=== PATIENT | female | born 1950 | race Caucasian/White ===

== ENCOUNTER 2017-02-21 10:51 | Emergency (ER) | payer MEDICARE ==
[~2017-02-21] VITALS: Ht 165.1 cm; Wt 77.1 kg
[~2017-02-21 10:51] MED LIST: PHENERGAN25 M1 PO
== END 2017-02-21 11:52 | disposition home or self-care (01) ==
LOC: ED 10:51
DX: I73.9 Peripheral vascular disease, unspecified (principal); Z88.2 Allergy status to sulfonamides; Z88.8 Allergy status to other drugs, medicaments and biological substances; Z86.73 Personal history of transient ischemic attack (TIA), and cerebral infarction without residual deficits

== ENCOUNTER 2017-10-01 14:50 | Emergency (ER) | payer MEDICARE ==
[~2017-10-01] VITALS: Ht 165.1 cm; Wt 81.6 kg
[2017-10-01] MEDS ORDERED: ZITHROMAX250 MG PO (19:23)
[2017-10-01] MEDS ORDERED: DELTASONE20 M1 PO (19:23)
== END 2017-10-01 19:30 | disposition home or self-care (01) ==
LOC: ED 14:50
DX: J40 Bronchitis, not specified as acute or chronic (principal); Z88.2 Allergy status to sulfonamides

== ENCOUNTER → 2017-10-25 | Outpatient (CLI) | payer MEDICARE ==
[~2017-10-25] MED LIST changes: +DELTASONE20 M1 PO; +ZITHROMAX250 MG PO
[2017-10-25 14:55] LABS: BASO % 0.4 % (0.0-1.0); EOS # 0.1 10*3/uL (0.0-0.4); EOS % 2.1 % (1.0-4.0); HEMATOCRIT 37.8 % (37.0-47.0); HEMOGLOBIN 12.3 g/dl (12.0-16.0); LYMPH # 1.6 10*3/uL (1.3-4.4); LYMPH % 30.3 % (27.0-41.0); MEAN CELL VOLUME 94.3 fl (81.0-99.0); MEAN CORPUSCULAR HGB 30.7 pg (27.0-31.0); MEAN CORPUSCULAR HGB CONC 32.5 g/dl (33.0-37.0); MEAN PLATELET VOLUME 9.2 fl (9.6-12.3); MONO # 0.4 10*3/uL (0.1-1.0); MONO % 8.3 % (3.0-9.0); NEUT # 3.1 10*3/uL (2.3-7.9); NEUT % 58.7 % (47.0-73.0); PLATELET COUNT AUTOMATED 210 10*3/uL (130-400); RED BLOOD COUNT 4.01 10*6/uL (4.10-5.10); RED CELL DISTRI WIDTH 12.6 % (0-14.5); WHITE BLOOD COUNT 5.3 10*3/uL (4.8-10.8)
[2017-10-25 15:26] LABS: ALBUMIN 3.4 gm/dl (3.1-4.5); ALKALINE PHOSPHATASE 55 U/L (45-117); BUN 15 mg/dl (7-24); CHLORIDE 107 mmol/L (98-107); CHOLESTEROL 188 mg/dL (<200); CREATININE 0.72 mg/dL (0.55-1.02); HDL CHOLESTEROL 53 mg/dl (40-60); LDL CHOLESTEROL 103 mg/dL (9-159); POTASSIUM 3.9 mmol/L (3.5-5.1); SGOT/AST 10 IU/L (3-35); SGPT/ALT 16 U/L (12-78); SODIUM 141 mmol/L (136-145); TOTAL PROTEIN 6.6 gm/dL (6.4-8.2); TRIGLYCERIDES 159 mg/dl (<150); VLDL CHOLESTEROL 32 mg/dL (6-40)
== END | disposition home or self-care (01) ==
LOC: LAB 14:33
PROVIDERS: Internal Medicine
DX: E66.3 Overweight (principal); R42 Dizziness and giddiness; Z79.899 Other long term (current) drug therapy

== ENCOUNTER → 2017-10-29 | Outpatient (CLI) | payer MEDICARE | END | disposition home or self-care (01) | LOC: US 10:00 | DX: I65.23 Occlusion and stenosis of bilateral carotid arteries (principal); R55 Syncope and collapse; Z78.0 Asymptomatic menopausal state ==

== ENCOUNTER → 2017-11-14 | Outpatient (CLI) | payer MEDICARE | END | disposition home or self-care (01) | LOC: MAMMO 10-29 10:49 | DX: Z12.31 Encounter for screening mammogram for malignant neoplasm of breast (principal); Z13.820 Encounter for screening for osteoporosis; Z78.0 Asymptomatic menopausal state ==

== ENCOUNTER → 2017-11-25 | Outpatient (CLI) | payer MEDICARE ==
--- NOTE | ~2017-11-25 | HM ---
[place], [place] HOLTER MONITOR REPORT [id number] UNIT #: [id number] ROOM: DOCTOR: LILA SIMPSON MD BIRTHDATE: [birth year] DOS: 11/26/2017 Study was recorded from November 25 through the . The recording was analyzed and this is being interpreted and dictated on 11/26/2017. INDICATIONS: Dizziness. PROCEDURE: The patient's rhythms were recorded utilizing a Holter device for 24 hours from November 25 to 2017. FINDINGS: Basic rhythm is normal sinus with an average heart rate of 70, heart rate varied from 41 beats per minute to 132 beats per minute in sinus rhythm. The patient had occasional premature ventricular contractions with rare couplets. There was no sustained ventricular tachycardia seen. The patient had occasional premature atrial contractions with seven short runs of SVT. These lasted up to 7 beats in duration with maximum heart rate recorded at 194. No prolonged pauses were seen. The patient did return a diary and reported that she was feeling lightheaded and short of breath on numerous occasions. During one episode, she did have a 3 beat run of SVT. The other episodes were associated with either normal sinus rhythm or mild sinus tachycardia. The symptoms did not correlate directly with any significant arrhythmia. IMPRESSION: 1. Occasional premature ventricular contractions without symptoms. 2. Occasional premature atrial contractions. The patient did feel "a little dizzy" during a 3 beat run of SVT. Otherwise, she did not record any symptoms during SVT. 3. Multiple reports of dizziness, lightheadedness, and dyspnea reported during sinus rhythm or mild sinus tachycardia. LILA SIMPSON MD CM:HOLTER:HOLTER MONITOR REPORT 00 22 LILA SIMPSON MD
== END | disposition home or self-care (01) ==
LOC: CARD 09:49
DX: R42 Dizziness and giddiness (principal)

== ENCOUNTER 2018-01-18 03:11 | Inpatient (IN) | payer MEDICARE ==
[2018-01-18] VITALS (17 sets, daily range): BP systolic 95–138; BP diastolic 33–81
[~2018-01-18] VITALS: Ht 165.1 cm; Wt 81.6 kg
--- NOTE | ~2018-01-18 | PR ---
[place], [place] PROGRESS NOTE NAME: CRYSTAL GREENFIELD [facility] #: [id number] UNIT #: [id number] ROOM: 507 DOCTOR: LILA SIMPSON MD BIRTHDATE: [birth year] DOS: 01/20/2018 SUBJECTIVE: The patient was seen today, 01/20/2018, in the Cardiology Department just prior to her pharmacologic stress test. She is a 67-year-old woman who presented for evaluation of heart palpitations and lightheadedness. She states that she has had episodes like this intermittently for the past few months, but usually they had been brief and self limited. The current episode was much more prolonged. She was found to have a narrow complex tachycardia in the Emergency Room. she was given diltiazem and converted back to sinus rhythm. Cardiac biomarkers were abnormal with a troponin of 0.344, followed by 0.463, followed by 0.381. She has felt well since she has been in the hospital, has had no further palpitations. She is on metoprolol now and she is tolerating it well. PHYSICAL EXAMINATION: GENERAL: She is a slender white female who is awake, alert and oriented. VITAL SIGNS: Pulse is 72 and regular, blood pressure is 100/63. She is afebrile. She weighs 81.6 kg and has a body mass index of 30. HEENT: Normocephalic and atraumatic. Extraocular muscles are intact. Sclerae are clear. Pupils are equal, round and react to light. The oral mucosa is moist. Tongue is midline. NECK: Supple. She has no jugular distention or hepatojugular reflux. Carotids are full. LUNGS: Respirations are unlabored. Her chest is clear to auscultation and percussion. HEART: Has a regular rhythm with an S4 gallop. There is no S3. ABDOMEN: Benign. EXTREMITIES: Showed no edema. Peripheral pulses are palpable in the feet. ASSESSMENT AND PLAN: She seems to be stable from a cardiac standpoint. It is likely that her elevated troponin on admission was related to her rapid tachycardia rather than secondary to an acute coronary event. In order to evaluate her further, we will proceed with a pharmacologic stress test today and probable echo was well. If those are normal, she may be discharged and we will consider outpatient electrophysiologic assessment for further evaluation. We thank the hospitalist physicians for asking our advice regarding her care. [place], [place] PROGRESS NOTE NAME: CRYSTAL GREENFIELD UNIT #: [id number] ROOM: 507 DOCTOR: CALVIN CASTRO,LILA BIRTHDATE: [birth year] LILA SIMPSON MD CM:PNTRANS [id number] LILA SIMPSON MD 01/20/18 1116 interface
[2018-01-18 03:44] LABS: BASO % 0.4 % (0.0-1.0); EOS # 0.2 10*3/uL (0.0-0.4); EOS % 1.8 % (1.0-4.0); HEMATOCRIT 42.4 % (37.0-47.0); HEMOGLOBIN 13.8 g/dl (12.0-16.0); LYMPH # 3.7 10*3/uL (1.3-4.4); LYMPH % 36.9 % (27.0-41.0); MEAN CELL VOLUME 94.4 fl (81.0-99.0); MEAN CORPUSCULAR HGB 30.7 pg (27.0-31.0); MEAN CORPUSCULAR HGB CONC 32.5 g/dl (33.0-37.0); MEAN PLATELET VOLUME 9.9 fl (9.6-12.3); MONO # 0.9 10*3/uL (0.1-1.0); MONO % 9.1 % (3.0-9.0); NEUT # 5.2 10*3/uL (2.3-7.9); NEUT % 51.5 % (47.0-73.0); PLATELET COUNT AUTOMATED 232 10*3/uL (130-400); RED BLOOD COUNT 4.49 10*6/uL (4.10-5.10); RED CELL DISTRI WIDTH 13.2 % (0-14.5)
[2018-01-18 03:52] LABS: ACT PARTIAL THROMBO TIME 21.9 SECONDS (20.8-31.5); INTERNATIONAL NORM RATIO 0.9 (2.0-3.5)
[2018-01-18 04:01] LABS: ALBUMIN 3.5 gm/dl (3.1-4.5); ALKALINE PHOSPHATASE 53 U/L (45-117); BUN 14 mg/dl (7-24); CHLORIDE 104 mmol/L (98-107); CREATININE 0.94 mg/dL (0.55-1.02); POTASSIUM 3.9 mmol/L (3.5-5.1); SGOT/AST 14 IU/L (3-35); SGPT/ALT 16 U/L (12-78); SODIUM 138 mmol/L (136-145); TOTAL PROTEIN 7.1 gm/dL (6.4-8.2)
[2018-01-18 04:05] LABS: TROPONIN I 0.344 ng/ml (<0.045)
[2018-01-18 07:04] LABS: PHOSPHOROUS 3.7 mg/dL (2.5-4.9)
[2018-01-18 07:13] LABS: THYROID STIM HORMONE (HS) 2.03 uIU/ml (0.358-4.75)
[2018-01-18 07:58] LABS: VITAMIN D, 25-HYDROXY 17.5 ng/mL (30-100)
[2018-01-18 17:32] LABS: BILIRUBIN NEGATIVE (NEGATIVE); BLOOD NEGATIVE (NEGATIVE); CLARITY CLEAR (CLEAR); COLOR YELLOW (YELLOW); GLUCOSE NEGATIVE (NEGATIVE); KETONE NEGATIVE (NEGATIVE); LEUKO ESTERASE 1+ (NEGATIVE); NITRITE NEGATIVE (NEGATIVE); UROBILINOGEN 0.2 E.U./dl (0.2-1.0)
[2018-01-18 17:38] LABS: BACTERIA 2+; EPITHELIAL CELLS 0-2; RBC 0-2 rbc/hpf (0-2)
[2018-01-19] VITALS: BP 102/46
[2018-01-19 06:34] LABS: BASO % 0.5 % (0.0-1.0); EOS # 0.2 10*3/uL (0.0-0.4); EOS % 3.2 % (1.0-4.0); HEMATOCRIT 41.7 % (37.0-47.0); HEMOGLOBIN 13.2 g/dl (12.0-16.0); LYMPH # 2.3 10*3/uL (1.3-4.4); LYMPH % 37.8 % (27.0-41.0); MEAN CELL VOLUME 96.5 fl (81.0-99.0); MEAN CORPUSCULAR HGB 30.6 pg (27.0-31.0); MEAN CORPUSCULAR HGB CONC 31.7 g/dl (33.0-37.0); MEAN PLATELET VOLUME 9.4 fl (9.6-12.3); MONO # 0.6 10*3/uL (0.1-1.0); MONO % 9.9 % (3.0-9.0); NEUT # 2.9 10*3/uL (2.3-7.9); NEUT % 48.4 % (47.0-73.0); PLATELET COUNT AUTOMATED 242 10*3/uL (130-400); RED BLOOD COUNT 4.32 10*6/uL (4.10-5.10); RED CELL DISTRI WIDTH 13.2 % (0-14.5)
[2018-01-19 07:01] LABS: ALBUMIN 3.3 gm/dl (3.1-4.5); BUN 16 mg/dl (7-24); CHLORIDE 106 mmol/L (98-107); CREATININE 0.73 mg/dL (0.55-1.02); POTASSIUM 3.9 mmol/L (3.5-5.1); SGOT/AST 13 IU/L (3-35); SGPT/ALT 15 U/L (12-78); SODIUM 142 mmol/L (136-145); TOTAL PROTEIN 6.7 gm/dL (6.4-8.2)
[2018-01-19 07:02] LABS: ALKALINE PHOSPHATASE 51 U/L (45-117)
[2018-01-19 08:00] VITALS: BP 122/68
[2018-01-19 12:00] VITALS: BP 103/58
[2018-01-19 16:00] VITALS: BP 135/68
[2018-01-19 20:00] VITALS: BP 129/63
[2018-01-20] VITALS: BP 101/66
[2018-01-20 06:49] LABS: BASO % 0.4 % (0.0-1.0); EOS # 0.2 10*3/uL (0.0-0.4); EOS % 2.2 % (1.0-4.0); HEMATOCRIT 44.3 % (37.0-47.0); HEMOGLOBIN 14.3 g/dl (12.0-16.0); LYMPH # 2.2 10*3/uL (1.3-4.4); LYMPH % 32.5 % (27.0-41.0); MEAN CELL VOLUME 94.9 fl (81.0-99.0); MEAN CORPUSCULAR HGB 30.6 pg (27.0-31.0); MEAN CORPUSCULAR HGB CONC 32.3 g/dl (33.0-37.0); MEAN PLATELET VOLUME 9.5 fl (9.6-12.3); MONO # 0.6 10*3/uL (0.1-1.0); MONO % 8.4 % (3.0-9.0); NEUT # 3.8 10*3/uL (2.3-7.9); NEUT % 56.4 % (47.0-73.0); PLATELET COUNT AUTOMATED 259 10*3/uL (130-400); RED BLOOD COUNT 4.67 10*6/uL (4.10-5.10); WHITE BLOOD COUNT 6.8 10*3/uL (4.8-10.8)
[2018-01-20 06:55] LABS: ALBUMIN 3.6 gm/dl (3.1-4.5); ALKALINE PHOSPHATASE 50 U/L (45-117); BUN 15 mg/dl (7-24); CHLORIDE 104 mmol/L (98-107); CREATININE 0.82 mg/dL (0.55-1.02); POTASSIUM 3.9 mmol/L (3.5-5.1); SGOT/AST 10 IU/L (3-35); SGPT/ALT 15 U/L (12-78); SODIUM 140 mmol/L (136-145)
[2018-01-20 08:00] VITALS: BP 100/63
[2018-01-20 12:00] VITALS: BP 100/60
[2018-01-20 16:00] VITALS: BP 108/63
[2018-01-20] MEDS ORDERED: TOPROL XL50 M1 PO (18:37)
[2018-01-20] MEDS ORDERED: VITAMIN D31000 UNI1 PO (18:37)
[2018-01-20] MEDS ORDERED: ASPIRIN ADULT L81 M2 PO (18:37)
[2018-01-20] MEDS ORDERED: ATORVASTATIN CA40 M1 PO (18:37)
== END 2018-01-20 19:46 | disposition home or self-care (01) | DRG 205 ==
LOC: ED 03:11 → EDHOLD 04:14 → 5E 04:14
PROVIDERS: Emergency Medicine Emergency Medical Services; Internal Medicine
PROC: 3E073KZ Introduction of Other Diagnostic Substance into Coronary Artery, Percutaneous Approach (ICD-10-PCS; principal; 2018-01-18)
PROC: 4A02XM4 Measurement of Cardiac Total Activity, External Approach (ICD-10-PCS; principal; 2018-01-18)
DX: M94.0 Chondrocostal junction syndrome [Tietze] (principal); I21.A1 Myocardial infarction type 2; I95.9 Hypotension, unspecified; R65.10 Systemic inflammatory response syndrome (SIRS) of non-infectious origin without acute organ dysfunction; E83.41 Hypermagnesemia; Z68.45 Body mass index [BMI] 70 or greater, adult; I73.9 Peripheral vascular disease, unspecified; I47.1 Supraventricular tachycardia; K21.9 Gastro-esophageal reflux disease without esophagitis; J42 Unspecified chronic bronchitis; R73.9 Hyperglycemia, unspecified; E53.8 Deficiency of other specified B group vitamins; E66.9 Obesity, unspecified; Z88.2 Allergy status to sulfonamides; Z82.49 Family history of ischemic heart disease and other diseases of the circulatory system; Z84.89 Family history of other specified conditions; Z79.899 Other long term (current) drug therapy

== ENCOUNTER → 2018-01-31 | Outpatient (CLI) | payer MEDICARE ==
[~2018-01-31] MED LIST changes: +ASPIRIN ADULT L81 M2 PO; +ATORVASTATIN CA40 M1 PO; +TOPROL XL50 M1 PO; +VITAMIN D31000 UNI1 PO
--- NOTE | ~2018-01-31 | HM ---
[place], [place] HOLTER MONITOR REPORT NAME: CRYSTAL GREENFIELD UNIT #: [id number] ROOM: DOCTOR: LILA SIMPSON MD BIRTHDATE: [birth year] DOS: 02/03/2018 A 48-HOUR HOLTER MONITOR Study was done from January 31 through the 2017. The recording was analyzed 02/03/2018. INDICATIONS: Palpitations and dizziness. PROCEDURE: The patient's rhythm was recorded utilizing a Holter device for 48 hours. FINDINGS: The basic rhythm was normal sinus. Average heart rate was 66, heart rate in sinus rhythm varied from 40-140 beats per minute. The patient had occasional isolated PVCs. One couplet was recorded. Episodes of ventricular bigeminy were seen. These did not appear to be associated with any symptoms. The patient did have occasional to frequent PACs. She had several short runs of atrial tachycardia up to 15 beats in duration. Heart rate in SVT, was as high as 190 beats per minute. These did not appear to be associated with any symptoms. No prolonged pauses were seen. The patient did return a diary and stated that she had shortness of breath and dizziness on multiple occasions with episodes of palpitations on several occasions as well. These were often with activity such as walking the dog, pushing a grocery cart, etc. Analysis of the rhythm strips obtained during symptoms showed that she was in sinus rhythm without any arrhythmias at this time. IMPRESSION: 1. Occasional to frequent isolated PVCs. No ventricular tachycardia was seen. 2. Episodes of supraventricular tachycardia recorded up to 15 beats in duration with rates up to 190 beats per minute. These did not appear to be associated with any symptoms. 3. The patient reported symptoms of dyspnea and palpitations along with lightheadedness on several occasions. In each case, she was in sinus rhythm without any recorded arrhythmias. [place], [place] HOLTER MONITOR REPORT NAME: CRYSTAL GREENFIELD UNIT #: [id number] ROOM: DOCTOR: LIAL SIMPSON MD BIRTHDATE: [birth year] LILA SIMPSON MD CM:HOLTER:HOLTER MONITOR REPORT 25 51 LILA SIMPSON MD
== END | disposition home or self-care (01) ==
LOC: CARD 09:55
DX: R00.2 Palpitations (principal); R42 Dizziness and giddiness; I47.1 Supraventricular tachycardia

== ENCOUNTER → 2018-04-07 | Outpatient (CLI) | payer MEDICARE | END | disposition home or self-care (01) | LOC: RAD 11:51 | DX: M47.896 Other spondylosis, lumbar region (principal); M47.897 Other spondylosis, lumbosacral region ==

== ENCOUNTER → 2019-06-17 | Outpatient (CLI) | payer MEDICARE | END | disposition home or self-care (01) | LOC: RAD 11:51 | DX: M85.88 Other specified disorders of bone density and structure, other site (principal); M50.30 Other cervical disc degeneration, unspecified cervical region; M48.02 Spinal stenosis, cervical region ==

== ENCOUNTER 2019-08-07 09:09 | Emergency (ER) | payer MEDICARE ==
[~2019-08-07] VITALS: Ht 165.1 cm; Wt 81.6 kg
[2019-08-07] MEDS ORDERED: LEVAQUIN750 M1 PO (10:57)
[2019-08-07] MEDS ORDERED: PROAIR HFA8.5 GM INH (10:57)
[2019-08-07] MEDS ORDERED: PREDNISONE50 MG PO (10:57)
== END 2019-08-07 10:47 | disposition home or self-care (01) ==
LOC: ED 09:09
DX: J18.9 Pneumonia, unspecified organism (principal); Z88.2 Allergy status to sulfonamides; Z79.82 Long term (current) use of aspirin; Z79.899 Other long term (current) drug therapy

== ENCOUNTER 2019-09-04 20:53 | Inpatient (IN) | payer MEDICARE ==
[~2019-09-04] VITALS: Ht 165.1 cm; Wt 83.6 kg
[~2019-09-04 20:53] MED LIST changes: +LEVAQUIN750 M1 PO; +PREDNISONE50 MG PO; +PROAIR HFA8.5 GM INH
[2019-09-04 20:57] VITALS: BP 132/63
[2019-09-04 21:12] LABS: BASO % 0.2 % (0.0-1.0); EOS # 0.2 10*3/uL (0.0-0.4); EOS % 1.7 % (1.0-4.0); HEMATOCRIT 43.9 % (37.0-47.0); LYMPH # 2.2 10*3/uL (1.3-4.4); LYMPH % 23.1 % (27.0-41.0); MEAN CELL VOLUME 96.5 fl (81.0-99.0); MEAN CORPUSCULAR HGB 30.8 pg (27.0-31.0); MEAN CORPUSCULAR HGB CONC 31.9 g/dl (33.0-37.0); MEAN PLATELET VOLUME 9.2 fl (9.6-12.3); MONO # 0.8 10*3/uL (0.1-1.0); MONO % 8.9 % (3.0-9.0); NEUT # 6.2 10*3/uL (2.3-7.9); NEUT % 65.9 % (47.0-73.0); PLATELET COUNT AUTOMATED 247 10*3/uL (130-400); RED BLOOD COUNT 4.55 10*6/uL (4.10-5.10); RED CELL DISTRI WIDTH 12.6 % (0-14.5); WHITE BLOOD COUNT 9.4 10*3/uL (4.8-10.8)
[2019-09-04 21:23] LABS: ACT PARTIAL THROMBO TIME 26.7 SECONDS (20.0-32.1); INTERNATIONAL NORM RATIO 0.9 (2.0-3.5)
[2019-09-04 21:29] LABS: ALBUMIN 3.8 gm/dl (3.1-4.5); ALKALINE PHOSPHATASE 65 U/L (45-117); BUN 12 mg/dl (7-24); CHLORIDE 106 mmol/L (98-107); CREATININE 0.84 mg/dL (0.55-1.02); POTASSIUM 3.8 mmol/L (3.5-5.1); SGOT/AST 10 IU/L (3-35); SGPT/ALT 18 U/L (12-78); SODIUM 138 mmol/L (136-145); TOTAL PROTEIN 7.5 gm/dL (6.4-8.2)
[2019-09-04 21:30] LABS: TROPONIN I < 0.015 ng/ml (<0.045)
--- NOTE | 2019-09-04 21:52 | NUR ---
PT STATES SHE FEELS A LITTLE BETTER AFTER BREATHING TREATMENT BUT IS STILL HAVING PAIN IN THE RIGHT SIDE OF RIBS. LUNGS CLEAR AT THIS TIME. SIDERAILS UP X2, CALL LIGHT WITHIN REACH
[2019-09-04 22:12] VITALS: BP 125/68
[2019-09-05 00:45] VITALS: BP 139/66
[2019-09-05 00:54] VITALS: BP 121/50
--- NOTE | 2019-09-05 00:57 | NUR ---
A 69, admitted to , under the services of RAVEN Billingsley DO with a diagnosis of PE. Chief complaint is SOB. Patient arrived via being carried from ER. Monitor applied. Initial assessment completed. Vital signs taken and recorded. RAVEN BILLINGSLEY DO notified of admission to the unit. Orders received. See assessment for past medical history, medications and allergies. Patient and/or family oriented to unit. [facility] visitation policy reviewed. Clothing/patient valuable form completed. GINA YAÑEZ
--- NOTE | 2019-09-05 01:40 | NUR ---
DR. GORE NOTIFIED PT DOES NOT TAKE ANY HOME MEDICATIONS. PT IS AWAKE AT THIS TIME. RESPIRATIONS EASY ON 2L NC. DENIES ANY SOB AT THIS TIME. VOICES NO COMPLAINTS AT THIS TIME. CALL LIGHT WITHIN REACH.
--- NOTE | 2019-09-05 03:00 | NUR ---
PT SLEEPING. NO SIGNS OF DISTRESS. RESPIRATIONS EASY AND UNLABORED. CALL LIGHT IN REACH.
--- NOTE | 2019-09-05 05:19 | NUR ---
DR. LAZO NOTIFIED OF CONSULT. PER DR. LAZO, PT IS TO REMAIN ON LOVENOX AND NOT XARELTO FOR NOW. NO OTHER ORDERS AT THIS TIME.
--- NOTE | 2019-09-05 06:10 | NUR ---
NORCO GIVEN PER ORDER FOR COMPLAINTS OF 8/10 RIGHT SIDED CHEST PAIN. WILL MONITOR EFFECTIVENESS.
--- NOTE | 2019-09-05 07:30 | NUR ---
NORCO EFFECTIVE PER PT. WILL CONTINUE TO MONITOR. VSS.
[2019-09-05 08:00] VITALS: BP 135/60
--- NOTE | 2019-09-05 10:50 | NUR ---
NORCO GIVEN PER PRN ORDER FOR C/O CHEST DISCOMFORT DUE TO COUGH. WILL MONITOR EFFECTIVENESS. RATES PAIN 04/08. CALL LIGHT WITHIN REACH.
--- NOTE | 2019-09-05 11:46 | NUR ---
MELODIE EFFECTIVE PER PT.
[2019-09-05 12:00] VITALS: BP 114/53
--- NOTE | 2019-09-05 14:53 | NUR ---
NORCO GIVEN PER PRN ORDER FOR C/O CHEST PAIN DUE TO COUGHING. RATES PAIN 04/08. WILL MONITOR EFFECTIVENESS.
[2019-09-05 16:00] VITALS: BP 126/61
--- NOTE | 2019-09-05 18:55 | NUR ---
PT MEDICATED WITH PO NORCO PER PRN ORDER FOR C/O PAIN. RATES PAIN 05/09. WILL MONITOR EFFECTIVENESS.
--- NOTE | 2019-09-05 19:10 | NUR ---
REPORT RECEIVED FROM JAJA RINCON. PT AWAKE AT THIS TIME. O2 INTACT, 2L. NO COMPLAINTS AT THIS TIME. CALL LIGHT IN REACH, WHITE BOARD UPDATED.
[2019-09-05 20:00] VITALS: BP 108/72
--- NOTE | 2019-09-05 20:29 | NUR ---
NORCO EFFECTIVE FOR PAIN PER PT. RESTING QUIETLY AT THIS TIME. CALL LIGHT IN REACH.
--- NOTE | 2019-09-05 23:00 | NUR ---
PT MEDICATED WITH NORCO FOR COMPLAINTS OF CHEST PAIN RELATED TO COUGHING. WILL MONITOR EFFECTIVENESS.
[2019-09-06] VITALS: BP 92/74
--- NOTE | 2019-09-06 01:00 | NUR ---
PT SLEEPING AT THIS TIME.
--- NOTE | 2019-09-06 03:45 | NUR ---
PT LYING IN BED SLEEPING AT THIS TIME. RESPIRATIONS EASY AND UNLABORED. O2 INTACT. CALL LIGHT IN REACH.
--- NOTE | 2019-09-06 04:35 | NUR ---
24 HR chart check completed.
[2019-09-06 06:18] VITALS: BP 132/64
[2019-09-06 06:41] LABS: BASO % 0.4 % (0.0-1.0); EOS # 0.3 10*3/uL (0.0-0.4); EOS % 4.8 % (1.0-4.0); HEMATOCRIT 41.1 % (37.0-47.0); HEMOGLOBIN 12.9 g/dl (12.0-16.0); LYMPH # 1.9 10*3/uL (1.3-4.4); LYMPH % 28.6 % (27.0-41.0); MEAN CELL VOLUME 97.2 fl (81.0-99.0); MEAN CORPUSCULAR HGB 30.5 pg (27.0-31.0); MEAN CORPUSCULAR HGB CONC 31.4 g/dl (33.0-37.0); MEAN PLATELET VOLUME 9.4 fl (9.6-12.3); MONO # 0.7 10*3/uL (0.1-1.0); MONO % 10.5 % (3.0-9.0); NEUT # 3.7 10*3/uL (2.3-7.9); NEUT % 55.4 % (47.0-73.0); PLATELET COUNT AUTOMATED 246 10*3/uL (130-400); RED BLOOD COUNT 4.23 10*6/uL (4.10-5.10); RED CELL DISTRI WIDTH 12.5 % (0-14.5); WHITE BLOOD COUNT 6.7 10*3/uL (4.8-10.8)
[2019-09-06 06:56] LABS: BUN 12 mg/dl (7-24); CHLORIDE 106 mmol/L (98-107); CHOLESTEROL 178 mg/dL (<200); CREATININE 0.74 mg/dL (0.55-1.02); HDL CHOLESTEROL 53 mg/dl (40-60); LDL CHOLESTEROL 105 mg/dL (9-159); PHOSPHOROUS 3.9 mg/dL (2.5-4.9); POTASSIUM 4.3 mmol/L (3.5-5.1); SODIUM 137 mmol/L (136-145); TRIGLYCERIDES 101 mg/dl (<150); VLDL CHOLESTEROL 20 mg/dL (6-40)
[2019-09-06 08:00] VITALS: BP 109/61
--- NOTE | 2019-09-06 10:50 | NUR ---
PT MEDICATED WITH PO NORCO PER PRN ORDER FOR C/O CHEST PAIN DUE TO COUGHING. WILL MONITOR EFFECTIVENESS. CALL LIGHT WITHIN REACH.
--- NOTE | 2019-09-06 11:50 | NUR ---
EARLIER PAIN MEDICATION EFFECTIVE PER PT.
[2019-09-06 12:00] VITALS: BP 135/53
[2019-09-06 16:00] VITALS: BP 110/58
--- NOTE | 2019-09-06 16:30 | NUR ---
NORCO GIVEN PER PRN ORDER FOR C/O CHEST DISCOMFORT DUE TO COUGH. WILL MONITOR EFFECTIVENESS.
--- NOTE | 2019-09-06 16:59 | NUR ---
SPRAY APPLICATOR CALLED AT THIS TIME REGARDING RUN OF SVT. PATIENT DOES HAVE HISTORY OF SVT. PT IS ASYMPTOMATIC. PATIENT STATES SHE WAS UP IN THE BATHROOM. WILL CONTINUE TO MONITOR. NSR PER CM. HR 70'S. VSS
--- NOTE | 2019-09-06 18:00 | NUR ---
MELODIE RELIEVING PAIN PER PT.
--- NOTE | 2019-09-06 19:20 | NUR ---
REPORT RECEIVED FROM JAJA RINCON. PT VOICES NO COMPLAINTS AT THIS TIME. O2 INTACT, CALL LIGHT IN REACH.
[2019-09-06 20:00] VITALS: BP 120/49
--- NOTE | 2019-09-06 20:28 | NUR ---
PT MEDICATED WITH NORCO PER ORDER FOR COMPLAINTS OF CHEST PAIN RELATED TO COUGHING. WILL CONTINUE TO MONITOR. CALL LIGHT IN REACH.
--- NOTE | 2019-09-06 22:00 | NUR ---
NORCO EFFECTIVE FOR CHEST PAIN PER PT
[2019-09-07] VITALS: BP 121/59
--- NOTE | 2019-09-07 00:45 | NUR ---
PT MEDICATED WITH NORCO PER ORDER FOR CHEST PAIN RELATED TO COUGHING. WILL MONITOR EFFECTIVENESS.
--- NOTE | 2019-09-07 01:00 | NUR ---
PT COMPLAINING OF CONSTIPATION RELATED TO PAIN MEDS. NOTIFIED DR. GORE, ORDERS RECEIVED.
--- NOTE | 2019-09-07 01:26 | NUR ---
PT MEDICATED WITH COLACE PER ORDER FOR CONSTIPATION. WILL MONITOR EFFECTIVENESS.
--- NOTE | 2019-09-07 02:00 | NUR ---
NORCO APPEARS EFFECTIVE FOR PAIN, PT SLEEPING AT THIS TIME.
--- NOTE | 2019-09-07 06:16 | NUR ---
NORCO GIVEN PER ORDER FOR COMPLAINT OF CHEST PAIN RELATED TO COUGHING. WILL MONITOR EFFECTIVENESS
[2019-09-07 07:03] LABS: BASO % 0.3 % (0.0-1.0); EOS # 0.2 10*3/uL (0.0-0.4); EOS % 3.7 % (1.0-4.0); HEMATOCRIT 38.1 % (37.0-47.0); HEMOGLOBIN 12.2 g/dl (12.0-16.0); LYMPH # 1.5 10*3/uL (1.3-4.4); LYMPH % 23.5 % (27.0-41.0); MEAN CORPUSCULAR HGB 30.7 pg (27.0-31.0); MEAN PLATELET VOLUME 9.8 fl (9.6-12.3); MONO # 0.7 10*3/uL (0.1-1.0); MONO % 10.7 % (3.0-9.0); NEUT % 61.6 % (47.0-73.0); PLATELET COUNT AUTOMATED 264 10*3/uL (130-400); RED BLOOD COUNT 3.97 10*6/uL (4.10-5.10); RED CELL DISTRI WIDTH 12.2 % (0-14.5); WHITE BLOOD COUNT 6.5 10*3/uL (4.8-10.8)
[2019-09-07 07:09] LABS: BUN 13 mg/dl (7-24); CHLORIDE 105 mmol/L (98-107); CREATININE 0.71 mg/dL (0.55-1.02); POTASSIUM 4.1 mmol/L (3.5-5.1); SODIUM 138 mmol/L (136-145)
[2019-09-07 07:42] VITALS: BP 110/64
--- NOTE | 2019-09-07 07:57 | NUR ---
PT IS PLEASANT, UP RESTING IN BED AND WAITING FOR BREAKFAST TO ARRIVE. CATHERINE HIDALGO SP[facility]
--- NOTE | 2019-09-07 08:30 | NUR ---
PT SITTING UP IN BED. RESP-EASY AND REGULAR. OXYGEN IN USE. NO C/O AT THIS TIME. LUNGS DIMINISHED T/O. CALL LIGHT IN REACH. STUDENT NURSE WITH PT TODAY ALSO. WILL CON'T TO MONITOR.
--- NOTE | 2019-09-07 08:52 | NUR ---
SPOKE WITH DR. MEJIA THIS AM AWARE PT C/O VAGINAL ITCHING. SHE WILL TAKE CARE OF IT.
--- NOTE | 2019-09-07 09:53 | NUR ---
PT IS SITTING UP IN BED WATCHING TV. PLEASANT AND COOPERATIVE. CATHERINE HIDALGO SP[facility]
[2019-09-07 11:54] VITALS: BP 108/68
--- NOTE | 2019-09-07 12:00 | NUR ---
PT RESTING IN BED, CHANGED POSITIONS WHILE WAITING FOR LUNCH TO ARRIVE. NO C/O PAIN AT THIS TIME. CATHERINE HIDALGO SPBLESSINGCC
--- NOTE | 2019-09-07 12:17 | NUR ---
PATIENT ASSESSED FOR HOME OXYGEN. AT REST ON ROOM AIR< SPO2:91%, HEART RATE:85, RESPIRATORY RATE:18, BLOOD PRESSURE:132/88 DURIMNG AMBULATION THE PATIENTS SPO2 DROPPED TO 84% ON ROOM AIR. AFTER ABOUT 2 MINS ON A 2L NASAL CANNULA PATIENT'S SPO2 WAS AT 94% AND HOLDING. THEIR SPO2 DID NOT DROP FROM 94% ON THE WAY BACK TO THE ROOM. PATIENT DOES QUALIFY, AND SHOULD HAVE 2LNC DURING EXERTION AND NEEDED.
--- NOTE | 2019-09-07 13:29 | NUR ---
PT IS RESTING COMFORTABLY IN BED. CATHERINE HIDALGO [facility]
--- NOTE | 2019-09-07 14:54 | NUR ---
Professor Of Literature in to talk to patient. Patient states lives at HOME with . There are FEW steps in the home. Physician: [facility] Pharmacy: [facility] Home health services: NONE Patient's level of ADLs: INDEPENDENT Patient has working utilities: YES DME: NONE Follow-up physician's appointment after d/c: WILL BE MADE BY HOSPITALIST NURSE DIRECTOR ON DISCHARGE Does patient want to access PORTAL?: NO Discharge plan PT LIVES AT HOME WITH HER AND IS INDEPENDENT IN HER CARE. DENIES SHE WILL HAVE ANY NEEDS, STATES SHE WILL RETURN HOME WITH . WILL CONTINUE TO FOLLOW. STATES WILL TAKE HER HOME ON DISCHARGE.. ODILON MAN
[2019-09-07 16:00] VITALS: BP 124/77
--- NOTE | 2019-09-07 16:00 | NUR ---
PT RESTING IN BED. RESP-EASY AND REGULAR. OXYGEN IN USE. NO C/O AT THIS TIME. CALL LIGHT IN REACH. SEE SHIFT ASSESSMENT.
--- NOTE | 2019-09-07 18:02 | NUR ---
PT RESTING IN BED. C/O RIGHT RIB AREA PAIN FROM COUGHING. RATES PAIN 8 ON PAIN SCALE 0-10. MEDICATED WITH NORCO PO PER PRN ORDER, SEE EMAR. CALL LIGHT IN REACH. VISITORS AT HER SIDE.
--- NOTE | 2019-09-07 19:00 | NUR ---
PT STATES PAIN MEDICATION HELPS. CALL LIGHT IN REACH.
[2019-09-07 20:00] VITALS: BP 132/69
--- NOTE | 2019-09-07 20:00 | NUR ---
PT RESTING IN BED. NO C/O AT THIS TIME. CALL LIGHT IN REACH. OXYGEN IN USE. SEE SHIFT ASSESSMENT.
--- NOTE | 2019-09-07 21:30 | NUR ---
RESTING IN BED. NO C/O AT THIS TIME. CALL LIGHT IN REACH.
[2019-09-08] VITALS: BP 106/83
[2019-09-08 08:00] VITALS: BP 100/62
--- NOTE | 2019-09-08 08:00 | NUR ---
PT RESTING IN BED. RESP-EASY AND REGULAR. OXYGEN IN USE. NO C/O AT THIS TIME. CALL LIGHT IN REACH. SEE SHIFT ASSESSMENT.
--- NOTE | 2019-09-08 10:40 | NUR ---
PHYSICAL THERAPY Joe completed moderate level of complexity [id number] recomend SNF at discharge PT to work on transfer, amb, strengthening, balance and safety Miri Kirk PT
--- NOTE | 2019-09-08 11:17 | NUR ---
ASSESSD FOR HOME O2 FOLLOWS: SAT 93% WITH 2L/M NC APPLIED AT REST HR 75 BP 110/58 SAT 88% RA AT REST 2L/M NC APPLIED, SAT TO 93%. SAT TO 88% WITH 2L/M NC APPLIED DURING AMBULATION O2 TO 3L.M, SAT 89 TO 92%, DURING AMBULATION HR 96 RECOVERY SAT 94% WITH 2L/M NC APPLIED, HR 84 BP 110/70 SLIGHT SOB NOTED. RN NOTIFIED DR. LAZO NOTIFIED
[2019-09-08 12:00] VITALS: BP 105/60
--- NOTE | 2019-09-08 12:09 | NUR ---
PT C/O RIGHT SIDE/RIB PAIN WITH COUGHING OR MOVING. MEDICATED WITH NORCO PO PER PRN ORDER, SEE EMAR. RATES PAIN 5 ON PAIN SCALE 0-10. CALL LIGHT IN REACH.
--- NOTE | 2019-09-08 13:00 | NUR ---
RESTING IN BED. RESP-EASY AND REGULAR. STATES PAIN MEDICATION HELPS. CALL LIGHT IN REACH.
[2019-09-08] MEDS ORDERED: XARE15TA PO (13:52)
[2019-09-08] MEDS ORDERED: OXYGEN NAS (13:52)
[2019-09-08] MEDS ORDERED: XARE20MG PO (13:52)
--- NOTE | 2019-09-08 15:30 | NUR ---
Discharge instructions reviewed with patient/family. Patient receptive and verbalizes understanding. Follow-up care arranged. Written instructions given to patient/family. HEPLOCK REMOVED 2X2 APPLIED. MONITOR REMOVED. PT WAITING FOR OXYGEN TO BE DELIVERED. VANESSA CHAPMAN
--- NOTE | 2019-09-08 15:33 | NUR ---
PORTABLE OXYGEN TANK IN ROOM WITH PT. WAITING FOR DAUGHTER TO ARRIVE TO GO HOME.
--- NOTE | 2019-09-08 16:00 | NUR ---
PT ESCORTED VIA WHEELCHAIR FOR DISCHARGE WITH VISITOR AT HER SIDE. OXYGEN IN USE.
== END 2019-09-08 16:00 | disposition home or self-care (01) | DRG 175 ==
LOC: ED 20:53 → EDHOLD 09-05 00:24 → 4E 09-05 00:24
PROVIDERS: Emergency Medicine Emergency Medical Services; Family Medicine; Internal Medicine; ADMIT Internal Medicine
DX: I26.99 Other pulmonary embolism without acute cor pulmonale (principal); J96.01 Acute respiratory failure with hypoxia; J98.11 Atelectasis; E53.8 Deficiency of other specified B group vitamins; E66.9 Obesity, unspecified; E78.1 Pure hyperglyceridemia; I73.9 Peripheral vascular disease, unspecified; Z86.718 Personal history of other venous thrombosis and embolism; Z79.01 Long term (current) use of anticoagulants; Z88.2 Allergy status to sulfonamides; I25.2 Old myocardial infarction; Z82.49 Family history of ischemic heart disease and other diseases of the circulatory system; Z83.79 Family history of other diseases of the digestive system; Z68.29 Body mass index [BMI] 29.0-29.9, adult

== ENCOUNTER → 2019-10-23 | Outpatient (CLI) | payer MEDICARE ==
[~2019-10-23] MED LIST changes: +OXYGEN NAS; +XARE15TA PO; +XARE20MG PO
[2019-10-23 10:06] LABS: CREATININE 0.86 mg/dL (0.55-1.02)
== END | disposition home or self-care (01) ==
LOC: LAB 09:23 → CT 10:00
PROVIDERS: Internal Medicine Critical Care Medicine
DX: R91.1 Solitary pulmonary nodule (principal)

== ENCOUNTER → 2020-04-22 | Outpatient (CLI) | payer MEDICARE ==
[2020-04-22 09:47] LABS: BUN 11 mg/dl (7-24); CREATININE 0.81 mg/dL (0.55-1.02)
== END | disposition home or self-care (01) ==
LOC: LAB 09:03 → CT 10:00
PROVIDERS: Internal Medicine Critical Care Medicine
DX: Z01.812 Encounter for preprocedural laboratory examination (principal); R59.9 Enlarged lymph nodes, unspecified

== ENCOUNTER → 2020-04-26 | Outpatient (CLI) | payer MEDICARE | END | disposition home or self-care (01) | LOC: RESCLI 05:44 | DX: I73.9 Peripheral vascular disease, unspecified (principal); I47.1 Supraventricular tachycardia; R53.82 Chronic fatigue, unspecified; Z86.711 Personal history of pulmonary embolism ==

== ENCOUNTER → 2020-04-27 | Outpatient (CLI) | payer MEDICARE ==
[2020-04-27 09:32] LABS: BASO % 0.6 % (0.0-1.0); EOS # 0.2 10*3/uL (0.0-0.4); EOS % 2.9 % (1.0-4.0); HEMATOCRIT 43.4 % (37.0-47.0); LYMPH # 1.7 10*3/uL (1.3-4.4); LYMPH % 31.8 % (27.0-41.0); MEAN CELL VOLUME 94.6 fl (81.0-99.0); MEAN CORPUSCULAR HGB 30.1 pg (27.0-31.0); MEAN CORPUSCULAR HGB CONC 31.8 g/dl (33.0-37.0); MEAN PLATELET VOLUME 9.2 fl (9.6-12.3); MONO # 0.5 10*3/uL (0.1-1.0); MONO % 9.6 % (3.0-9.0); NEUT # 2.9 10*3/uL (2.3-7.9); NEUT % 54.9 % (47.0-73.0); PLATELET COUNT AUTOMATED 251 10*3/uL (130-400); RED BLOOD COUNT 4.59 10*6/uL (4.10-5.10); RED CELL DISTRI WIDTH 13.2 % (0-14.5); WHITE BLOOD COUNT 5.2 10*3/uL (4.8-10.8)
[2020-04-27 10:11] LABS: ALBUMIN 3.3 gm/dl (3.1-4.5); ALKALINE PHOSPHATASE 52 U/L (45-117); BUN 14 mg/dl (7-24); CHLORIDE 109 mmol/L (98-107); CHOLESTEROL 197 mg/dL (<200); CREATININE 0.78 mg/dL (0.55-1.02); HDL CHOLESTEROL 72 mg/dl (40-60); LDL CHOLESTEROL 113 mg/dL (9-159); POTASSIUM 4.2 mmol/L (3.5-5.1); SGPT/ALT 18 U/L (12-78); SODIUM 142 mmol/L (136-145); TOTAL PROTEIN 6.7 gm/dL (6.4-8.2); TRIGLYCERIDES 59 mg/dl (<150); VLDL CHOLESTEROL 12 mg/dL (6-40)
[2020-04-27 10:17] LABS: SGOT/AST < 3 IU/L (3-35)
[2020-04-27 10:30] LABS: VITAMIN D, 25-HYDROXY 36.3 ng/mL (30-100)
== END | disposition home or self-care (01) ==
LOC: LAB 09:03
PROVIDERS: Internal Medicine
DX: R53.82 Chronic fatigue, unspecified (principal); E55.9 Vitamin D deficiency, unspecified; E78.2 Mixed hyperlipidemia; Z79.899 Other long term (current) drug therapy; Z76.89 Persons encountering health services in other specified circumstances

== ENCOUNTER → 2020-06-01 | Outpatient (CLI) | payer MEDICARE | END | disposition home or self-care (01) | LOC: RESCLI 02:06 | PROVIDERS: ATTEND Internal Medicine Nephrology | DX: I73.9 Peripheral vascular disease, unspecified (principal); R53.82 Chronic fatigue, unspecified; I47.1 Supraventricular tachycardia; M85.89 Other specified disorders of bone density and structure, multiple sites; B37.2 Candidiasis of skin and nail; Z86.711 Personal history of pulmonary embolism; Z12.31 Encounter for screening mammogram for malignant neoplasm of breast; Z98.890 Other specified postprocedural states; Z88.8 Allergy status to other drugs, medicaments and biological substances ==

== ENCOUNTER → 2020-06-13 | Outpatient (CLI) | payer MEDICARE | END | disposition home or self-care (01) | LOC: MAMMO 12:32 | PROVIDERS: ATTEND Internal Medicine Nephrology | DX: Z12.31 Encounter for screening mammogram for malignant neoplasm of breast (principal) ==

== ENCOUNTER → 2020-09-13 | Outpatient (CLI) | payer MEDICARE | END | disposition home or self-care (01) | LOC: RESCLI 00:41 | PROVIDERS: ATTEND Internal Medicine | DX: I73.9 Peripheral vascular disease, unspecified (principal); R53.82 Chronic fatigue, unspecified; I47.1 Supraventricular tachycardia; M85.89 Other specified disorders of bone density and structure, multiple sites; B37.2 Candidiasis of skin and nail; R73.9 Hyperglycemia, unspecified; Z86.711 Personal history of pulmonary embolism; Z79.02 Long term (current) use of antithrombotics/antiplatelets; Z98.890 Other specified postprocedural states; Z88.8 Allergy status to other drugs, medicaments and biological substances; Z23 Encounter for immunization; Z79.899 Other long term (current) drug therapy ==

== ENCOUNTER 2020-11-01 16:39 | Emergency (ER) | payer MEDICARE ==
[~2020-11-01] VITALS: Ht 165.1 cm; Wt 87.5 kg
[2020-11-01] MEDS ORDERED: DOXYCYCLINE100 M3 PO (17:05)
[2020-11-01] MEDS ORDERED: ANTIBIOTIC28.4 GM T (17:06)
== END 2020-11-01 17:22 | disposition home or self-care (01) ==
LOC: ED 16:39
DX: S61.402A Unspecified open wound of left hand, initial encounter (principal); I48.91 Unspecified atrial fibrillation; Z88.2 Allergy status to sulfonamides; Z79.899 Other long term (current) drug therapy; Z90.89 Acquired absence of other organs; Z98.890 Other specified postprocedural states; Z86.718 Personal history of other venous thrombosis and embolism; W26.8XXA Contact with other sharp object(s), not elsewhere classified, initial encounter; Y93.H2 Activity, gardening and landscaping; Y92.89 Other specified places as the place of occurrence of the external cause; Y99.8 Other external cause status

== ENCOUNTER → 2020-12-27 | Outpatient (CLI) | payer MEDICARE ==
[~2020-12-27] MED LIST changes: +ANTIBIOTIC28.4 GM T; +DOXYCYCLINE100 M3 PO
== END | disposition home or self-care (01) ==
LOC: RESCLI 02:15
PROVIDERS: ATTEND Emergency Medicine
DX: I47.1 Supraventricular tachycardia (principal); I73.9 Peripheral vascular disease, unspecified; M85.89 Other specified disorders of bone density and structure, multiple sites; R53.82 Chronic fatigue, unspecified; D68.51 Activated protein C resistance; Z86.711 Personal history of pulmonary embolism; Z79.899 Other long term (current) drug therapy; Z88.8 Allergy status to other drugs, medicaments and biological substances

== ENCOUNTER 2021-02-13 17:28 | Emergency (ER) | payer MEDICARE ==
[~2021-02-13] VITALS: Wt 81.6 kg
[2021-02-13 20:39] LABS: BILIRUBIN Negative (Negative); BLOOD Negative (Negative); CLARITY Clear (Clear); COLOR Yellow (Yellow); GLUCOSE Negative (Negative); KETONE Negative (Negative); LEUKO ESTERASE 2+ (Negative); NITRITE Negative (Negative); SPECIFIC GRAVITY 1.015 (1.001-1.030)
[2021-02-13 20:49] LABS: BACTERIA TRACE; RBC 0-2 rbc/hpf (0-2); YEAST TRACE
[2021-02-13] MEDS ORDERED: MACROBID100 M1 PO (20:55)
[2021-02-13] MEDS ORDERED: METHOCARBAMOL500 M1 PO (20:55)
[2021-02-13] MEDS ORDERED: PREDNISONE20 M1 PO (20:55)
== END 2021-02-13 22:05 | disposition home or self-care (01) ==
LOC: ED 17:28
PROVIDERS: Physician Assistant
DX: S39.012A Strain of muscle, fascia and tendon of lower back, initial encounter (principal); Z79.899 Other long term (current) drug therapy; Z98.890 Other specified postprocedural states; Z88.2 Allergy status to sulfonamides; X58.XXXA Exposure to other specified factors, initial encounter; Y93.89 Activity, other specified; Y92.89 Other specified places as the place of occurrence of the external cause; Y99.8 Other external cause status

== ENCOUNTER → 2021-05-10 | Outpatient (CLI) | payer MEDICARE ==
[~2021-05-10] MED LIST changes: +MACROBID100 M1 PO; +METHOCARBAMOL500 M1 PO; +PREDNISONE20 M1 PO
[2021-05-10 14:32] LABS: BASO % 0.4 % (0.0-1.0); EOS # 0.1 10*3/uL (0.0-0.4); EOS % 1.4 % (1.0-4.0); HEMATOCRIT 44.1 % (37.0-47.0); LYMPH # 1.5 10*3/uL (1.3-4.4); LYMPH % 21.4 % (27.0-41.0); MEAN CELL VOLUME 97.8 fl (81.0-99.0); MEAN CORPUSCULAR HGB 31.3 pg (27.0-31.0); MEAN PLATELET VOLUME 9.5 fl (9.6-12.3); MONO # 0.6 10*3/uL (0.1-1.0); MONO % 7.9 % (3.0-9.0); NEUT # 4.9 10*3/uL (2.3-7.9); NEUT % 68.6 % (47.0-73.0); PLATELET COUNT AUTOMATED 221 10*3/uL (130-400); RED BLOOD COUNT 4.51 10*6/uL (4.10-5.10); RED CELL DISTRI WIDTH 13.2 % (0-14.5); WHITE BLOOD COUNT 7.1 10*3/uL (4.8-10.8)
[2021-05-10 14:35] LABS: BILIRUBIN Negative (Negative); BLOOD Trace-Lysed (Negative); CLARITY Cloudy (Clear); COLOR Yellow (Yellow); GLUCOSE Negative (Negative); KETONE Negative (Negative); LEUKO ESTERASE 3+ (Negative); NITRITE Positive (Negative); PH 7.5 (4.5-8.0); SPECIFIC GRAVITY <= 1.005 (1.001-1.030); UROBILINOGEN 0.2 E.U./dl (0.0-1.0)
[2021-05-10 14:48] LABS: BACTERIA 4+; WBC TNTC wbc/hpf (0-5)
[2021-05-10 14:57] LABS: ALBUMIN 3.6 gm/dl (3.1-4.5); BUN 11 mg/dl (7-24); CHLORIDE 106 mmol/L (98-107); CHOLESTEROL 191 mg/dL (<200); POTASSIUM 3.9 mmol/L (3.5-5.1); SGOT/AST 8 IU/L (3-35); SGPT/ALT 16 U/L (12-78); SODIUM 141 mmol/L (136-145); TRIGLYCERIDES 97 mg/dl (<150)
[2021-05-10 15:07] LABS: ALKALINE PHOSPHATASE 55 U/L (45-117); LDL CHOLESTEROL 108 mg/dL (9-159); TOTAL PROTEIN 7.1 gm/dL (6.4-8.2)
[2021-05-10 15:57] LABS: VITAMIN D, 25-HYDROXY 28.4 ng/mL (30-100)
== END | disposition home or self-care (01) ==
LOC: RESCLI 00:42
PROVIDERS: Hospitalist; ATTEND Internal Medicine Nephrology
DX: I47.1 Supraventricular tachycardia (principal); I73.9 Peripheral vascular disease, unspecified; M85.89 Other specified disorders of bone density and structure, multiple sites; R53.82 Chronic fatigue, unspecified; D68.51 Activated protein C resistance; G89.29 Other chronic pain; R30.0 Dysuria; R35.0 Frequency of micturition; M54.5 Low back pain; Z15.89 Genetic susceptibility to other disease; Z86.711 Personal history of pulmonary embolism; Z98.890 Other specified postprocedural states; Z88.8 Allergy status to other drugs, medicaments and biological substances; Z79.899 Other long term (current) drug therapy

== ENCOUNTER → 2021-05-17 | Outpatient (CLI) | payer MEDICARE | END | disposition home or self-care (01) | LOC: RESCLI 00:23 | PROVIDERS: ATTEND Internal Medicine Nephrology | DX: R05 Cough (principal); I47.1 Supraventricular tachycardia; I73.9 Peripheral vascular disease, unspecified; M85.89 Other specified disorders of bone density and structure, multiple sites; R53.82 Chronic fatigue, unspecified; D68.51 Activated protein C resistance; G89.29 Other chronic pain; Z15.89 Genetic susceptibility to other disease; R35.0 Frequency of micturition; M54.5 Low back pain; E53.8 Deficiency of other specified B group vitamins; B37.3 Candidiasis of vulva and vagina; J30.2 Other seasonal allergic rhinitis; Z86.711 Personal history of pulmonary embolism; Z88.8 Allergy status to other drugs, medicaments and biological substances; Z79.899 Other long term (current) drug therapy ==

== ENCOUNTER → 2021-05-24 | Outpatient (CLI) | payer MEDICARE | END | disposition home or self-care (01) | LOC: RESCLI 06:38 | PROVIDERS: ATTEND Internal Medicine Nephrology | DX: J02.9 Acute pharyngitis, unspecified (principal); J30.2 Other seasonal allergic rhinitis; Z88.8 Allergy status to other drugs, medicaments and biological substances; Z79.899 Other long term (current) drug therapy ==

== ENCOUNTER → 2021-06-07 | Outpatient (CLI) | payer MEDICARE | END | disposition home or self-care (01) | LOC: RESCLI 01:17 | PROVIDERS: ATTEND Family Medicine | DX: J06.9 Acute upper respiratory infection, unspecified (principal); M85.89 Other specified disorders of bone density and structure, multiple sites; M54.5 Low back pain; E53.8 Deficiency of other specified B group vitamins; D68.51 Activated protein C resistance; J30.2 Other seasonal allergic rhinitis; N90.4 Leukoplakia of vulva; Z88.8 Allergy status to other drugs, medicaments and biological substances; Z79.899 Other long term (current) drug therapy ==

== ENCOUNTER → 2021-07-26 | Outpatient (CLI) | payer MEDICARE ==
[2021-07-26 14:51] LABS: BILIRUBIN Negative (Negative); BLOOD Trace-Lysed (Negative); CLARITY Cloudy (Clear); COLOR Yellow (Yellow); GLUCOSE Negative (Negative); KETONE Negative (Negative); LEUKO ESTERASE 3+ (Negative); NITRITE Negative (Negative); SPECIFIC GRAVITY <= 1.005 (1.001-1.030); UROBILINOGEN 0.2 E.U./dl (0.0-1.0)
[2021-07-26 15:20] LABS: WBC TNTC wbc/hpf (0-5)
[2021-07-26 15:21] LABS: BACTERIA 4+
== END | disposition home or self-care (01) ==
LOC: RESCLI 09:52
PROVIDERS: Internal Medicine; ATTEND Internal Medicine Nephrology
DX: N39.0 Urinary tract infection, site not specified (principal); D68.51 Activated protein C resistance; E55.9 Vitamin D deficiency, unspecified; D51.0 Vitamin B12 deficiency anemia due to intrinsic factor deficiency; L43.9 Lichen planus, unspecified; J30.2 Other seasonal allergic rhinitis; Z88.8 Allergy status to other drugs, medicaments and biological substances; Z79.899 Other long term (current) drug therapy

== ENCOUNTER → 2021-08-02 | Outpatient (CLI) | payer MEDICARE | END | disposition home or self-care (01) | LOC: RESCLI 01:42 | PROVIDERS: ATTEND Internal Medicine | DX: N39.0 Urinary tract infection, site not specified (principal); Z79.01 Long term (current) use of anticoagulants; Z79.899 Other long term (current) drug therapy; Z98.890 Other specified postprocedural states ==

== ENCOUNTER → 2021-11-01 | Outpatient (CLI) | payer MEDICARE, OTHER | LOC: RESCLI 13:00 | PROVIDERS: ATTEND Internal Medicine Nephrology | DX: I73.9 Peripheral vascular disease, unspecified (principal); R53.82 Chronic fatigue, unspecified; M85.89 Other specified disorders of bone density and structure, multiple sites; D68.51 Activated protein C resistance; J30.2 Other seasonal allergic rhinitis; Z88.1 Allergy status to other antibiotic agents; Z79.899 Other long term (current) drug therapy; Z95.820 Peripheral vascular angioplasty status with implants and grafts; Z86.711 Personal history of pulmonary embolism; Z98.62 Peripheral vascular angioplasty status; Z88.8 Allergy status to other drugs, medicaments and biological substances ==

== ENCOUNTER → 2021-11-08 | Outpatient (CLI) | payer MEDICARE, OTHER ==
[2021-11-08 13:59] LABS: BASO % 0.7 % (0.0-1.0); EOS # 0.1 10*3/uL (0.0-0.4); EOS % 1.2 % (1.0-4.0); HEMATOCRIT 45.5 % (37.0-47.0); LYMPH # 1.8 10*3/uL (1.3-4.4); MEAN CELL VOLUME 98.5 fl (81.0-99.0); MEAN CORPUSCULAR HGB CONC 32.5 g/dl (33.0-37.0); MEAN PLATELET VOLUME 9.8 fl (9.6-12.3); MONO # 0.5 10*3/uL (0.1-1.0); MONO % 9.4 % (3.0-9.0); NEUT # 3.2 10*3/uL (2.3-7.9); NEUT % 56.5 % (47.0-73.0); PLATELET COUNT AUTOMATED 239 10*3/uL (130-400); RED BLOOD COUNT 4.62 10*6/uL (4.10-5.10); RED CELL DISTRI WIDTH 12.3 % (0-14.5); WHITE BLOOD COUNT 5.6 10*3/uL (4.8-10.8)
[2021-11-08 14:22] LABS: ALBUMIN 3.4 gm/dl (3.1-4.5); ALKALINE PHOSPHATASE 63 U/L (45-117); BUN 13 mg/dl (7-24); CHLORIDE 107 mmol/L (98-107); CHOLESTEROL 193 mg/dL (<200); CREATININE 0.83 mg/dL (0.55-1.02); LDL CHOLESTEROL 108 mg/dL (9-159); SGOT/AST 9 IU/L (3-35); SGPT/ALT 18 U/L (12-78); SODIUM 141 mmol/L (136-145); TOTAL PROTEIN 7.3 gm/dL (6.4-8.2); TRIGLYCERIDES 66 mg/dl (<150)
[2021-11-08 14:59] LABS: VITAMIN D, 25-HYDROXY 55.6 ng/mL (30-100)
== END | disposition home or self-care (01) ==
LOC: LAB 13:00 → RAD 13:30
PROVIDERS: Hospitalist; ATTEND Internal Medicine
DX: M81.0 Age-related osteoporosis without current pathological fracture (principal); R53.82 Chronic fatigue, unspecified; Z79.899 Other long term (current) drug therapy

== ENCOUNTER → 2022-01-03 | Outpatient (CLI) | payer MEDICARE, OTHER | END | disposition home or self-care (01) | LOC: RESCLI 02:57 | PROVIDERS: ATTEND Internal Medicine Nephrology | DX: I73.9 Peripheral vascular disease, unspecified (principal); J30.2 Other seasonal allergic rhinitis; R53.82 Chronic fatigue, unspecified; D68.51 Activated protein C resistance; Z86.711 Personal history of pulmonary embolism; Z79.899 Other long term (current) drug therapy ==

== ENCOUNTER 2022-02-16 14:20 | Emergency (ER) | payer MEDICARE, OTHER ==
[2022-02-16] MEDS ORDERED: AMOXICILLIN875 MG PO (16:05)
[2022-02-16] MEDS ORDERED: HYDROCODONE-AC1 EAC1 PO (16:06)
== END 2022-02-16 16:16 | disposition home or self-care (01) ==
LOC: ED 14:20
DX: K08.89 Other specified disorders of teeth and supporting structures (principal); Z88.1 Allergy status to other antibiotic agents; Z90.89 Acquired absence of other organs

== ENCOUNTER 2022-04-15 04:09 | Emergency (ER) | payer MEDICARE, OTHER ==
[~2022-04-15 04:09] MED LIST changes: +AMOXICILLIN875 MG PO; +HYDROCODONE-AC1 EAC1 PO
[2022-04-15 04:50] LABS: BASO % 0.7 % (0.0-1.0); EOS # 0.1 10*3/uL (0.0-0.4); EOS % 2.1 % (1.0-4.0); HEMATOCRIT 42.7 % (37.0-47.0); LYMPH # 2.1 10*3/uL (1.3-4.4); LYMPH % 36.2 % (27.0-41.0); MEAN CELL VOLUME 97.3 fl (81.0-99.0); MEAN CORPUSCULAR HGB 31.7 pg (27.0-31.0); MEAN CORPUSCULAR HGB CONC 32.6 g/dl (33.0-37.0); MEAN PLATELET VOLUME 8.9 fl (9.6-12.3); MONO # 0.5 10*3/uL (0.1-1.0); MONO % 7.9 % (3.0-9.0); NEUT # 3.1 10*3/uL (2.3-7.9); NEUT % 52.8 % (47.0-73.0); PLATELET COUNT AUTOMATED 247 10*3/uL (130-400); RED BLOOD COUNT 4.39 10*6/uL (4.10-5.10); RED CELL DISTRI WIDTH 13.3 % (0-14.5); WHITE BLOOD COUNT 5.8 10*3/uL (4.8-10.8)
[2022-04-15 04:59] LABS: INTERNATIONAL NORM RATIO 0.9 (2.0-3.5)
[2022-04-15 05:04] LABS: BUN 11 mg/dl (7-24); CHLORIDE 107 mmol/L (98-107); CREATININE 0.73 mg/dL (0.55-1.02); POTASSIUM 3.8 mmol/L (3.5-5.1); SODIUM 141 mmol/L (136-145)
== END 2022-04-15 09:01 | disposition home or self-care (01) ==
LOC: ED 04:09
PROVIDERS: Student in an Organized Health Care Education/Training Program
DX: S01.01XA Laceration without foreign body of scalp, initial encounter (principal); Z88.2 Allergy status to sulfonamides; Z88.1 Allergy status to other antibiotic agents; E66.9 Obesity, unspecified; Z90.89 Acquired absence of other organs; W18.39XA Other fall on same level, initial encounter; Y93.89 Activity, other specified; Y92.89 Other specified places as the place of occurrence of the external cause; Y99.8 Other external cause status

== ENCOUNTER → 2022-04-23 | Outpatient (CLI) | payer MEDICARE, OTHER | END | disposition home or self-care (01) | LOC: RESCLI 05:50 | PROVIDERS: ATTEND Internal Medicine | DX: I26.99 Other pulmonary embolism without acute cor pulmonale (principal); I82.409 Acute embolism and thrombosis of unspecified deep veins of unspecified lower extremity; Z79.899 Other long term (current) drug therapy; Z88.8 Allergy status to other drugs, medicaments and biological substances ==

== ENCOUNTER → 2022-10-22 | Outpatient (CLI) | payer MEDICARE, OTHER | END | disposition home or self-care (01) | LOC: RESCLI 01:08 | PROVIDERS: ATTEND Student in an Organized Health Care Education/Training Program | DX: R53.82 Chronic fatigue, unspecified (principal); E53.8 Deficiency of other specified B group vitamins; M54.9 Dorsalgia, unspecified; J30.2 Other seasonal allergic rhinitis; M85.89 Other specified disorders of bone density and structure, multiple sites; I26.99 Other pulmonary embolism without acute cor pulmonale; Z88.2 Allergy status to sulfonamides; Z88.8 Allergy status to other drugs, medicaments and biological substances; Z88.1 Allergy status to other antibiotic agents; Z82.49 Family history of ischemic heart disease and other diseases of the circulatory system; Z82.3 Family history of stroke; Z72.89 Other problems related to lifestyle; Z98.890 Other specified postprocedural states; Z79.899 Other long term (current) drug therapy ==

== ENCOUNTER → 2022-10-23 | Outpatient (CLI) | payer MEDICARE, OTHER ==
[2022-10-23 09:47] LABS: BASO % 0.6 % (0.0-1.0); EOS # 0.1 10*3/uL (0.0-0.4); EOS % 2.4 % (1.0-4.0); HEMATOCRIT 43.1 % (37.0-47.0); LYMPH # 1.3 10*3/uL (1.3-4.4); MEAN CELL VOLUME 98.9 fl (81.0-99.0); MEAN CORPUSCULAR HGB 32.3 pg (27.0-31.0); MEAN CORPUSCULAR HGB CONC 32.7 g/dl (33.0-37.0); MONO # 0.4 10*3/uL (0.1-1.0); MONO % 8.7 % (3.0-9.0); NEUT % 61.1 % (47.0-73.0); PLATELET COUNT AUTOMATED 238 10*3/uL (130-400); RED BLOOD COUNT 4.36 10*6/uL (4.10-5.10); RED CELL DISTRI WIDTH 12.8 % (0-14.5)
[2022-10-23 10:16] LABS: ALKALINE PHOSPHATASE 50 U/L (46-116); BUN 11 mg/dl (9-23); CHLORIDE 102 mmol/L (98-107); CHOLESTEROL 194 mg/dL (<200); LDL CHOLESTEROL 106 mg/dL (9-159); POTASSIUM 3.8 mmol/L (3.4-5.1); SGPT/ALT 18 U/L (10-49); TOTAL PROTEIN 6.6 gm/dL (6.0-8.0); TRIGLYCERIDES 122 mg/dl (<150)
[2022-10-23 10:24] LABS: VITAMIN D, 25-HYDROXY 43.6 ng/mL (30-100)
== END | disposition home or self-care (01) ==
LOC: LAB 09:12
PROVIDERS: ATTEND Student in an Organized Health Care Education/Training Program
DX: E53.8 Deficiency of other specified B group vitamins (principal); E55.9 Vitamin D deficiency, unspecified; R53.82 Chronic fatigue, unspecified; Z79.899 Other long term (current) drug therapy

== ENCOUNTER 2023-03-02 15:43 | Emergency (ER) | payer MEDICARE, OTHER ==
[~2023-03-02] VITALS: Ht 154.9 cm; Wt 77.6 kg
[2023-03-02] MEDS ORDERED: HYDROCODONE-AC1 EAC1 PO (16:45)
[2023-03-02 16:52] LABS: BILIRUBIN Negative (Negative); BLOOD Negative (Negative); CLARITY Clear (Clear); COLOR Yellow (Yellow); GLUCOSE Negative (Negative); KETONE Negative (Negative); LEUKO ESTERASE 2+ (Negative); NITRITE Negative (Negative); PH 7.5 (4.5-8.0)
[2023-03-02 17:02] LABS: BACTERIA 1+; RBC 0-2 rbc/hpf (0-2)
[2023-03-02] MEDS ORDERED: CEPHALEXIN500 M1 PO (17:12)
== END 2023-03-02 17:31 | disposition home or self-care (01) ==
LOC: ED 15:43
PROVIDERS: Internal Medicine
DX: S39.012A Strain of muscle, fascia and tendon of lower back, initial encounter (principal); N39.0 Urinary tract infection, site not specified; Z86.718 Personal history of other venous thrombosis and embolism; Z88.2 Allergy status to sulfonamides; Z88.8 Allergy status to other drugs, medicaments and biological substances; Z90.89 Acquired absence of other organs; Z98.890 Other specified postprocedural states; X50.1XXA Overexertion from prolonged static or awkward postures, initial encounter; Y93.89 Activity, other specified; Y92.89 Other specified places as the place of occurrence of the external cause; Y99.8 Other external cause status

== ENCOUNTER 2023-09-02 17:07 | Emergency (ER) | payer MEDICARE, OTHER ==
[~2023-09-02] VITALS: Ht 165.1 cm; Wt 72.6 kg
[~2023-09-02 17:07] MED LIST changes: +CEPHALEXIN500 M1 PO
[2023-09-02 20:28] LABS: BASO % 0.4 % (0.0-1.0); EOS # 0.2 10*3/uL (0.0-0.4); EOS % 1.9 % (1.0-4.0); HEMATOCRIT 43.5 % (37.0-47.0); LYMPH % 25.1 % (27.0-41.0); MEAN CELL VOLUME 97.5 fl (81.0-99.0); MEAN CORPUSCULAR HGB 31.8 pg (27.0-31.0); MEAN CORPUSCULAR HGB CONC 32.6 g/dl (33.0-37.0); MEAN PLATELET VOLUME 9.3 fl (9.6-12.3); MONO # 0.7 10*3/uL (0.1-1.0); MONO % 8.4 % (3.0-9.0); NEUT # 5.1 10*3/uL (2.3-7.9); NEUT % 64.1 % (47.0-73.0); PLATELET COUNT AUTOMATED 240 10*3/uL (130-400); RED BLOOD COUNT 4.46 10*6/uL (4.10-5.10); RED CELL DISTRI WIDTH 12.7 % (0-14.5)
[2023-09-02 20:39] LABS: ACT PARTIAL THROMBO TIME 25.7 SECONDS (20.0-32.1)
[2023-09-02 20:50] LABS: ALKALINE PHOSPHATASE 63 U/L (46-116); BUN 9 mg/dl (9-23); CHLORIDE 107 mmol/L (98-107); LIPASE 36 U/L (12-53); POTASSIUM 3.6 mmol/L (3.4-5.1); SGPT/ALT 11 U/L (5-49); TOTAL PROTEIN 6.8 gm/dL (6.0-8.0)
== END 2023-09-03 03:34 | disposition home or self-care (01) ==
LOC: ED 17:07
PROVIDERS: Internal Medicine
DX: M79.671 Pain in right foot (principal); Z88.2 Allergy status to sulfonamides; Z88.1 Allergy status to other antibiotic agents; Z79.899 Other long term (current) drug therapy; Z79.2 Long term (current) use of antibiotics; Z90.89 Acquired absence of other organs; Z98.890 Other specified postprocedural states; Z86.718 Personal history of other venous thrombosis and embolism; Z86.711 Personal history of pulmonary embolism; X50.3XXA Overexertion from repetitive movements, initial encounter; Y93.01 Activity, walking, marching and hiking; Y92.89 Other specified places as the place of occurrence of the external cause; Y99.8 Other external cause status

== ENCOUNTER → 2023-09-03 | Outpatient (CLI) | payer MEDICARE, OTHER | END | disposition home or self-care (01) | LOC: RAD 13:35 | PROVIDERS: ATTEND Student in an Organized Health Care Education/Training Program | DX: M79.604 Pain in right leg (principal) ==

== ENCOUNTER 2024-03-01 09:18 | Emergency (ER) | payer MEDICARE, OTHER ==
[~2024-03-01] VITALS: Ht 165.1 cm; Wt 75.7 kg
[2024-03-01] MEDS ORDERED: AVPAK AZITHROM250 M1 PO (09:54)
[2024-03-01] MEDS ORDERED: Metoclopramide Hydrochloride 5 MG TAB PO ONE (09:55)
== END 2024-03-01 10:03 | disposition home or self-care (01) ==
LOC: ED 09:18
DX: J40 Bronchitis, not specified as acute or chronic (principal); J32.9 Chronic sinusitis, unspecified; Z88.2 Allergy status to sulfonamides; Z88.8 Allergy status to other drugs, medicaments and biological substances; Z90.89 Acquired absence of other organs; Z98.890 Other specified postprocedural states; Z86.718 Personal history of other venous thrombosis and embolism

== ENCOUNTER → 2024-07-03 | Outpatient (CLI) | payer MEDICARE, OTHER ==
[~2024-07-03] MED LIST changes: +AVPAK AZITHROM250 M1 PO
[2024-07-03 10:18] LABS: BASO % 0.6 % (0.0-1.0); EOS # 0.1 10*3/uL (0.0-0.4); EOS % 2.3 % (1.0-4.0); HEMATOCRIT 44.3 % (37.0-47.0); LYMPH # 1.4 10*3/uL (1.3-4.4); LYMPH % 26.4 % (27.0-41.0); MEAN CELL VOLUME 95.1 fl (81.0-99.0); MEAN CORPUSCULAR HGB CONC 33.6 g/dl (33.0-37.0); MEAN PLATELET VOLUME 9.1 fl (9.6-12.3); MONO # 0.6 10*3/uL (0.1-1.0); MONO % 10.6 % (3.0-9.0); NEUT # 3.1 10*3/uL (2.3-7.9); NEUT % 59.9 % (47.0-73.0); PLATELET COUNT AUTOMATED 213 10*3/uL (130-400); RED BLOOD COUNT 4.66 10*6/uL (4.10-5.10); RED CELL DISTRI WIDTH 13.1 % (0-14.5); WHITE BLOOD COUNT 5.2 10*3/uL (4.8-10.8)
[2024-07-03 11:01] LABS: ALKALINE PHOSPHATASE 47 U/L (46-116); BUN 12 mg/dl (9-23); CHLORIDE 104 mmol/L (98-107); CHOLESTEROL 190 mg/dL (<200); LDL CHOLESTEROL 111 mg/dL (9-159); POTASSIUM 3.9 mmol/L (3.4-5.1); SGPT/ALT 13 U/L (5-49); TRIGLYCERIDES 72 mg/dl (<150)
== END | disposition home or self-care (01) ==
LOC: CARD 09:30 → LAB 09:45
PROVIDERS: ATTEND Family Medicine
DX: R00.1 Bradycardia, unspecified (principal); I49.9 Cardiac arrhythmia, unspecified; Z79.899 Other long term (current) drug therapy

== ENCOUNTER → 2024-12-02 | Day surgery (SDC) | payer MEDICARE ==
[~2024-12-02] VITALS: Ht 165.1 cm; Wt 68.0 kg
[~2024-12-02] MED LIST changes: +Balanced Salt Solution 500 ML OPH SCH; +Cefuroxime Sodium 5 MG in BALANCED SALT IRRIG SOLN NO.2 0.5 ML,SYRINGE, DISPOSABLE, 10 ... IO SCH; +Midazolam Hydrochloride 2 MG/2 ML VIAL IV ONE; +OFLOXACIN 0.3% 5 ML BOTTLE ONE; +OFLOXACIN 0.3% 5 ML BOTTLE OPH SCH; +PHENYLEPHRINE/KETOROLAC 4 ML in Balanced Salt Solution 500 ML OPH SCH; +POVIDONE IODINE 5% OPHTHALMIC 30 ML BOTTLE OPH SCH; +Phenylephrine Hydrochloride 2 ML BOT OPH ONE; +Phenylephrine Hydrochloride 2 ML BOT OPH SCH; +Proparacaine Hydrochloride 15 ML BOT OPH ONE; +Proparacaine Hydrochloride 15 ML BOT OPH SCH; +SODIUM CHLORIDE 0.9% 1,000 ML IV SCH; +TROPICAMIDE 3 ML BOT OPH ONE; +TROPICAMIDE 3 ML BOT OPH SCH; +Tetracaine Hydrochloride 0.5% 4 ML BOT OPH ONE; +Tetracaine Hydrochloride 0.5% 4 ML BOT OPH SCH; +prednisoLONE acetate 1% OPHTHALMIC 5 ML BOT OPH ONE; +prednisoLONE acetate 1% OPHTHALMIC 5 ML BOT OPH SCH
[2024-12-02 14:16] VITALS: BP 136/54
[2024-12-02 15:05] VITALS: BP 124/80
[2024-12-02 15:20] VITALS: BP 130/75
[2024-12-02 15:35] VITALS: BP 121/66
== END | disposition home or self-care (01) ==
LOC: SDC 11-30 14:00
PROVIDERS: ATTEND Ophthalmology
DX: H25.12 Age-related nuclear cataract, left eye (principal); I21.A1 Myocardial infarction type 2; F10.90 Alcohol use, unspecified, uncomplicated; Z90.89 Acquired absence of other organs; Z87.440 Personal history of urinary (tract) infections; Z98.890 Other specified postprocedural states; Z79.899 Other long term (current) drug therapy; Z88.2 Allergy status to sulfonamides; Z88.8 Allergy status to other drugs, medicaments and biological substances

== ENCOUNTER → 2024-12-30 | Day surgery (SDC) | payer MEDICARE ==
[~2024-12-30] VITALS: Ht 165.1 cm; Wt 68.0 kg
[2024-12-30 08:25] VITALS: BP 131/41
[2024-12-30 10:19] VITALS: BP 132/50
[2024-12-30 10:34] VITALS: BP 121/59
[2024-12-30 10:43] VITALS: BP 116/57
== END | disposition home or self-care (01) ==
LOC: SDC 12-25 12:30
PROVIDERS: ATTEND Ophthalmology
DX: H25.11 Age-related nuclear cataract, right eye (principal); I21.4 Non-ST elevation (NSTEMI) myocardial infarction; F10.90 Alcohol use, unspecified, uncomplicated; Z90.89 Acquired absence of other organs; Z87.440 Personal history of urinary (tract) infections; Z98.890 Other specified postprocedural states; Z79.899 Other long term (current) drug therapy; Z88.2 Allergy status to sulfonamides; Z88.8 Allergy status to other drugs, medicaments and biological substances